=== PATIENT | male | born 1990 | race Caucasian/White ===

== ENCOUNTER 2023-01-01 13:00 | Outpatient (RCR) | payer OTHER ==
[~2023-01-01 13:00] MED LIST: FLEXERIL 1010 MG/TAB PO; MOTRIN 800800 MG/TAB PO; NORCO 325 MG-51 TAB PO; TESSALON PERLE200 MG PO
== END 2023-01-10 | disposition home or self-care (01) ==
LOC: WSOT
DX: S62.144D Nondisplaced fracture of body of hamate [unciform] bone, right wrist, subsequent encounter for fracture with routine healing (principal); X58.XXXD Exposure to other specified factors, subsequent encounter